=== PATIENT | female | born 1970 | race Two or more races ===

== ENCOUNTER 2019-01-18 05:31 | Emergency (ER) | payer OTHER ==
[~2019-01-18] VITALS: Ht 167.6 cm; Wt 61.2 kg
[2019-01-18 05:52] VITALS: BP 147/91
[2019-01-18] MEDS ORDERED: LORAZEPAM 0.5 MG TABLET PO ONE (06:30)
[2019-01-18] MEDS ORDERED: LORAZEPAM 0.5 MG TABLET ONE (06:35)
== END 2019-01-18 06:51 ==
LOC: ER 05:45
DX: F41.0 Panic disorder [episodic paroxysmal anxiety] (principal); F17.200 Nicotine dependence, unspecified, uncomplicated; Z98.890 Other specified postprocedural states